=== PATIENT | female | born 1975 | race American Indian/Alaskan Native ===

== ENCOUNTER 2016-03-02 16:35 | Emergency (ER) | payer SELFPAY ==
--- NOTE | 2016-03-02 17:14 | PDOC ---
Back Pain / Injury HPI - General Chief Complaint: Lower Extremity Problem/Injury Stated Complaint: FELL ON ICE AT 2330 LAST NIGHT, R LEG PAIN Date Seen by Provider: 03/02/16 Time Seen by Provider: 17:09 Source: Patient Exam Limitations: POSITIVE: No limitations Nurse's Notes Reviewed & Considered: Yes - History of Present Illness Initial Comments: Patient comes in today to complaint of right lower back pain. History of fall on the ice 3 days ago landing on her buttocks. Now complaining of right lower back pain with radiation down her leg along the sciatic distribution. She denies her chills sweats, nausea vomiting or diarrhea, headache, chest pain, shortness of breath, cough, hematuria or dysuria. Body Location Affected: REPORTS: Back Timing: REPORTS: Abrupt Duration: >24 hours Severity: Moderate Quality: REPORTS: "Pain", Sharpness Context: REPORTS: None (She states pain is constant and the same regardless of whether she is standing and sitting walking or lying down.) Location at Time of Onset: REPORTS: Home Modifying Factors: improves with: Nothing Associated Symptoms: REPORTS: Back pain Similar Symptoms Previously: No Recent Care Received: REPORTS: Denies Any Prior Injuries Related to Current Complaint?: No - Patient Home Medications Home Medications: Home Medications Acetaminophen [Tylenol] 500 mg PO PRN PRN 12/05/15 Epinephrine [Epipen] 0.3 mg IM PRN PRN 12/05/15 Ibuprofen 400 mg PO Q6H PRN 12/05/15 - Patient Allergies Allergies/Adverse Reactions: Allergies Allergy/AdvReac Type Severity Reaction Status Date / Time Penicillins Allergy Severe Anaphylaxis Verified 03/02/16 16:48 shellfish derived Allergy Severe Anaphylaxis Verified 03/02/16 16:48 Sulfa (Sulfonamide Allergy Severe Anaphylaxis Verified 03/02/16 16:48 Antibiotics) venom-honey bee Allergy Severe Anaphylaxis Verified 03/02/16 16:48 [bee venom (honey bee)] venom-wasp [wasp venom] Allergy Severe Anaphylaxis Verified 03/02/16 16:48 tramadol Allergy Intermediate RASH Verified 03/02/16 16:48 Past Medical History - heen HEENT History: Other (please comment) Additional HEENT History: MISSING TEETH, DENTAL CARIES, BROKEN TEETH Cardiovascular History: Denies History Additional Cardiovasular History: was on b/p meds in past Respiratory History: Denies History Gastrointestinal History: Denies History Genitourinary History: Denies History Endocrine History: Denies History Musculoskeletal History: Denies History Prosthesis or Implant: No Neurological History: Migraines Blood Disorders: Denies History Psychiatric History: Denies History History of Sexually Transmitted Diseases: No Cancer History: Denies History History of MDRO: No History of Other Communicable Diseases: No Alcohol Use: Rarely Substance Use Type: None Previous Surgical History: Yes Type / Date of Surgery: left rotator cuff, partial hyst, fidelia, left ankle ORIF , TUBAL LIGATION, FINGER REATTACHMENT A CHILD Anesthesia Reactions: No Malignant Hyperthermia: No Significant Family History: No pertinent family hx ROS - Limitations ROS Limitations: No Limitations Constitution: REPORTS: Denies Symptoms Cardiovascular: REPORTS: Denies Cardiac Symptoms Respiratory: REPORTS: Denies Resp Symptoms Neurological: REPORTS: Denies Neuro Symptoms Gastrointestinal: REPORTS: Denies GI Symptoms Endocrine: REPORTS: Denies Symptoms Musculoskeletal: REPORTS: Back Pain Genitourinary: REPORTS: Denies Symptoms Eyes: REPORTS: Denies Symptoms ENT: REPORTS: Denies Symptoms Skin: REPORTS: Denies Skin Symptoms Lympathic: REPORTS: Denies Lympathic Symptoms Immunologic: POSITIVE: Denies Symptoms Psychiatric: POSITIVE: Denies Psych Symptoms Back Physical Assessment - General Appearance General Appearance: REPORTS: Alert, Cooperative, No Acute Distress, No Evidence of Trauma - HEENT HEENT: POSITIVE: Head Inspection Nml, Eyes Inspection Nml, Ears Inspection Nml, Nose Inspection Nml, PERRL, EOMI - Pupil Size Pupil Size: 4 mm: Bilateral - Neck Neck: POSITIVE: Non Tender, Painless ROM - Respiratory / CVS Respiratory / CVS: POSITIVE: Chest Non Tender, Breath Sounds Normal, No Respiratory Distress, Heart Sounds Normal, Regular Rate/Rhythm - Abdomen Abdomen: Soft: (All Quadrants), Normal Bowel Sounds: (All Quadrants), Denies Tenderness: (All Quadrants) - Back Back: REPORTS: Normal Inspection, No Vertebral Tenderness, Muscle Spasm ( Salvador spasms are located in the right paraspinal and sacral region) - Skin Skin: REPORTS: Intact, Normal For Race, Warm, Dry, No Rash - Extremities Extremity Assessment: Non-Tender: (ALL), Normal ROM: (ALL), No Edema: (ALL) Back Progress - Results Reviewed by me Xrays/CTs/US Reviewed: Yes Lab Results Reviewed: No EKG Interpreted/Reviewed By Me:: Yes - Patient's Progress Pain Medication Addressed: POSITIVE: Yes Re-Examine Time: 17:49 Status: POSITIVE: Unchanged MDM / ED Course: Patient brought into the emergency room, examined, radiographic studies were obtained. My review of x-rays show no acute osseous abnormalities. Assessment: Acute back pain Plan: Discharge home on Solu-Medrol Dosepak, Tylenol and ibuprofen as needed, follow up with primary care physician, consider MRI. - Consult Counseled: POSITIVE: Patient, Family, RE: Lab Results, RE: Radiology Results, RE : DX, RE: Need for F/U Patient Care Time - Estimated PCT Patient Care Time (In Minutes): 30 Vital Signs - Recent Vital Signs Vital Signs: Vital Signs (Last 8 hours) Temp Pulse Resp BP Pulse Ox 03/02/16 16:35 96.7 F L 79 15 124/72 99 - VS Reviewed Vital Signs Reviewed: Yes Discharge Clinical Impression: Back pain Discharge Disposition: Discharged to Home Condition: Stable Patient Instructions Given at Discharge: Lower Back Exercises (ED), Low Back Strain (ED)
[2016-03-02 17:30] VITALS: RESP 15; TEMP 96.7
[2016-03-02] MEDS: KETOROLAC 60 MG/2 ML VIAL IM ONE (17:45)
[2016-03-02] MEDS: Dexamethasone Oral Soln 10 MG/5 ML SOLN PO ONE (17:45)
--- NOTE | 2016-03-02 18:12 | DI ---
HISTORY: Fell on ice. Tailbone pain. COMPARISON: None available. FINDINGS: Three views of the coccyx are obtained, and demonstrate anatomic alignment without fractur es. IMPRESSION: 1. Normal sacrum and coccyx.
--- NOTE | 2016-03-02 18:14 | DI ---
HISTORY: Fell on ice. Low back pain. COMPARISON: None available. FINDINGS: Three views of the lumbar spine are obtained, and demonstrate anatomic alignment without f ractures. Vertebral body height and disc height is preserved. IMPRESSION: 1. Normal lumbar spine.
== END 2016-03-02 18:06 | disposition home or self-care (01) ==
LOC: ER 16:35
DX: M54.5 Low back pain (principal); W00.0XXA Fall on same level due to ice and snow, initial encounter
CPT/HCPCS: 72100; 72220; 96372; 99283 ×2; J1885; J2360; J8540

== ENCOUNTER 2016-07-19 11:38 | Emergency (ER) | payer SELFPAY ==
[2016-07-19 12:14] VITALS: RESP 15; TEMP 97.1
--- NOTE | 2016-07-19 13:06 | PDOC ---
Sore Throat/Dental Pain HPI - General Chief Complaint: Nasal/Mouth Problem /Injury Stated Complaint: dental pain Date Seen by Provider: 07/19/16 Time Seen by Provider: 11:45 Source: POSITIVE: Patient Exam Limitations: POSITIVE: No limitations Nurse's Notes Reviewed & Considered: Yes - History of Present Illness Initial Comments: The patient is a 40-year-old female who presents to the emergency department with complaints of right lower molar pain. She states that she has bad teeth in general. She states that she was eating a salad a couple of days ago when a piece of her right lower molar broke off. Since then she has had progressively worsening pain and some mild swelling. She denies fevers or chills or difficulty swallowing. She has been taking ibuprofen and Tylenol without any significant pain relief. She did take a dose of clindamycin this morning that she had left over from a previous dental infection. She is in the process of trying to arrange dental follow-up. - Patient Home Medications Home Medications: Home Medications Acetaminophen [Tylenol] 500 mg PO PRN PRN 12/05/15 Epinephrine [Epipen] 0.3 mg IM PRN PRN 12/05/15 Ibuprofen 400 mg PO Q6H PRN 12/05/15 Clindamycin HCl 300 mg PO TID #21 capsule 07/19/16 Hydrocodone/Acetaminophen [Dixon 7.5-325 Tablet] 1 each PO Q6H PRN #10 tablet Topiramate [Topamax] 50 mg PO PRN PRN 07/19/16 - Patient Allergies Allergies/Adverse Reactions: Allergies Allergy/AdvReac Type Severity Reaction Status Date / Time Penicillins Allergy Severe Anaphylaxis Verified 07/19/16 11:43 shellfish derived Allergy Severe Anaphylaxis Verified 07/19/16 11:43 Sulfa (Sulfonamide Allergy Severe Anaphylaxis Verified 07/19/16 11:43 Antibiotics) venom-honey bee Allergy Severe Anaphylaxis Verified 07/19/16 11:43 [bee venom (honey bee)] venom-wasp [wasp venom] Allergy Severe Anaphylaxis Verified 07/19/16 11:43 tramadol Allergy Intermediate RASH Verified 07/19/16 11:43 Past Medical History - heen HEENT History: Other (please comment) Additional HEENT History: MISSING TEETH, DENTAL CARIES, BROKEN TEETH Cardiovascular History: Denies History Additional Cardiovasular History: was on b/p meds in past Respiratory History: Denies History Gastrointestinal History: Denies History Genitourinary History: Denies History Endocrine History: Denies History Musculoskeletal History: Denies History Prosthesis or Implant: No Additional Musculoskeletal History: RIGHT SHOULDER ROTATOR CUFF INJURY Neurological History: Migraines Blood Disorders: Denies History Psychiatric History: Denies History History of Sexually Transmitted Diseases: No Female Reproductive History: Other (please comment) Additional Female Reproductive History: TUBAL LIGATION Cancer History: Denies History In Past Year Been Physically Harmed or Verbally Threatened: No (PER PATIENT) History of MDRO: No History of Other Communicable Diseases: No Tobacco Use: Current Every Day Smoker Alcohol Use: Rarely Substance Use Type: None Previous Surgical History: Yes Type / Date of Surgery: left rotator cuff, partial hyst, fidelia, left ankle ORIF , TUBAL LIGATION, FINGER REATTACHMENT A CHILD Anesthesia Reactions: No Malignant Hyperthermia: No Family History of Malignant Hyperthermia: No Significant Family History: No pertinent family hx Past Medical History Reviewed: Reviewed - No Changes ROS - Limitations ROS Limitations: No Limitations Constitution: DENIES: Chills, Fever Sore Throat/Dental Pain Exam - General Appearance General Appearance: REPORTS: Alert, Cooperative, No Acute Distress - HEENT Head / Face: POSITIVE: No Facial Swelling Eyes: POSITIVE: Inspection Normal Ears: POSITIVE: Ears Normal Inspection Nose: POSITIVE: Inspection Normal Oropharynx: POSITIVE: Pharynx Inspect. Nml, Airway Intact, Voice Normal, Moist Mucous Membranes Dental: POSITIVE: Other (She has a right lower molar which is broken, there is some surrounding erythema and swelling to the gum around the tooth) - Respiratory Respiratory: REPORTS: No Respiratory Distress, Breath Sounds Normal - Cardiovascular Cardiovascular: REPORTS: Regular Rate and Rhythm, Heart Sounds Normal Peripheral Pulses: Dorsalis-pedis (R): 2+, Dorsalis-pedis (L): 2+ - Abdomen Abdomen: Soft: (All Quadrants), Denies Tenderness: (All Quadrants), No Distention: (All Quadrants) - Extremities Extremity: Normal ROM: (All Extremities), Normal Inspection: (All Extremities) - Skin Skin: REPORTS: Intact, No Rash - Neurological / Psychological Neurological: POSITIVE: Oriented X3, Motor Normal, Sensation Normal Sore Throat/Dental Progress - Patient's Progress MDM / ED Course: The patient was started on clindamycin 300 mg 3 times a day for 7 days. She is advised to continue ibuprofen 800 mg 3 times a day as needed for pain. She was given a prescription for #10 Dixon which she can take as needed for breakthrough pain. She is advised return to the emergency room if she develops increased pain or swelling, fevers or chills, any worsening or change in symptoms. She is advised follow-up with the dentist as soon as possible. - Consult Counseled: POSITIVE: Patient, RE: DX, RE: Need for F/U Patient Care Time - Estimated PCT Patient Care Time (In Minutes): 10 Vital Signs - Recent Vital Signs Vital Signs: Vital Signs (Last 8 hours) Temp Pulse Resp BP Pulse Ox 07/19/16 11:38 97.1 F 74 15 141/92 97 - VS Reviewed Vital Signs Reviewed: Yes Discharge Clinical Impression: Dental abscess Discharge Disposition: Discharged to Home Condition: Stable Prescriptions / Orders: Clindamycin HCl 300 mg PO TID #21 capsule Hydrocodone/Acetaminophen [Dixon 7.5-325 Tablet] 1 each PO Q6H PRN #10 tablet PRN Reason: Pain Patient Instructions Given at Discharge: Dental Abscess (ED) Additional Instructions: Gentamicin 300 mg 3 times a day for 7 days. Continue ibuprofen 800 mg 3 times a day as needed for pain with food. You have also been prescribed Dixon 7.5/ 325 one every 6 hours as needed for severe pain. Return to the emergency room if increased pain or swelling, fever or difficulty swallowing, any worsening or change in symptoms. Recommend dental follow-up as soon as possible. Follow Up With: NAHID AMAYA [Primary Care Provider] -
== END 2016-07-19 12:13 | disposition home or self-care (01) ==
LOC: ER 11:38
DX: K04.7 Periapical abscess without sinus (principal); K08.89 Other specified disorders of teeth and supporting structures
CPT/HCPCS: 99282